=== PATIENT | female | born 1995 | race Hispanic/Latino ===

== ENCOUNTER → 2025-02-22 | Outpatient (CLI) | payer OTHER ==
--- NOTE | 2025-02-22 11:08 | HMCIMG ---
Exam Type: LUMBAR W FLEXION/EXTENSION Clinical Information: LBP Comparison: None Findings: Exam of the lumbosacral spine demonstrates no evidence of fracture, subluxation, or significant degenerative change. The alignment of the spine is normal. The disc spaces are intact. The facet joints are preserved without significant degenerative changes Bone mineralization is normal. Impression: Normal exam of the lumbosacral spine.
--- NOTE | 2025-02-22 11:18 | HMCIMG ---
Exam Type: KNEE BILATERAL STANDING Clinical Information: LEFT KNE PAIN Comparison: None Findings: The bone examination is unremarkable. No fractures or dislocations are seen. No radiopaque foreign bodies are noted. Soft tissues are preserved. IMPRESSION: Normal examination.
== END | disposition home or self-care (01) ==
LOC: RAH 09:42
PROVIDERS: ATTEND Physician Assistant
DX: M54.51 Vertebrogenic low back pain (principal); M25.562 Pain in left knee; M54.16 Radiculopathy, lumbar region; Z59.41 Food insecurity
CPT/HCPCS: 72114; 73565; 73560